=== PATIENT | female | born 1980 | race Asian ===

== ENCOUNTER 2019-05-12 18:49 | Inpatient (IN) | payer SELFPAY ==
[~2019-05-12] VITALS: Ht 154.9 cm; Wt 65.8 kg
[2019-05-12 18:59] VITALS: BP 98/54
--- NOTE | 2019-05-12 19:09 | Emergency Room Report ---
History of Present Illness General Chief Complaint: Vaginal Source: Patient Present Illness HPI Disclaimer: Please note that this report is being documented using DRAGON technology. This can lead to erroneous entry secondary to incorrect interpretation by the dictating instrument. HPI: 38-year-old female with a history of uterine fibroids presents for evaluation of vaginal bleeding. She was in her usual state of health until she was awakened at 3 AM this morning complaining of profuse abdominal cramping and bleeding. She was taken by ambulance to [facility] where she was diagnosed with bleeding uterine fibroids by ultrasound. Her paperwork is available from the facility. She was discharged with a hemoglobin of 8.9 and started on Ortho-Novum estradiol. Ultrasound report does not show any free fluid. Notes bilateral cysts and heterogeneous uterus myometrium consistent with multiple fibroids. hCG was negative. PMH: Denies PSH: Denies Allergies: Denies Social Hx: Denies Allergies: Coded Allergies: No Known Allergies (Unverified , 05/12/19) Patient History Now: No Nursing Documentation-PMH Past Medical History: No Stated History Review of Systems All Other Systems: negative except mentioned in HPI Physical Exam Vital Signs Date Time Temp Pulse Resp B/P (MAP) Pulse Ox O2 Delivery O2 Flow Rate FiO2 05/12/19 18:52 98.4 75 20 105/54 (71) 98 Room Air General: Awake and alert, appears uncomfortable, tremulous, pale HEENT: NC/AT. EOMI. Cardiovascular: RRR. S1 and S2 normal. No murmur appreciated Resp: Normal work of breathing. No cough, wheezing or crackles appreciated Abdomen: Abdomen is soft, nondistended. Danie in the suprapubic region. Skin: Intact. No abrasions, laceration or rash over the exposed skin MSK: Normal tone and bulk. Moving all extremities. No obvious deformity. Neuro: Awake and alert. Mentating appropriately. Medical Decision Making Diagnostic Impression: Primary Impression: Vaginal bleeding Additional Impression: Anemia ER Course 38-year-old female visiting from [facility] presents for evaluation of vaginal bleeding. She was diagnosed with uterine fibroids earlier this morning and prescribed estradiol which she has not yet started. She had a significant worsening leading episode while trying to black pickler her medications. She arrives with borderline but stable blood pressures and is not tachycardic. She appears uncomfortable. Will obtain labs including type and screen in preparation for possible transfusion. She is bleeding at this but no gross hemorrhage is apparent. hCG according to hospital paperwork was negative earlier today. Laboratory Tests Test 05/12/19 18:58 05/12/19 20:50 White Blood Count 7.9 K/UL (4.8-10.8) Red Blood Count 3.07 M/UL (4.20-5.40) L Hemoglobin 8.9 G/DL (12.0-16.0) L Hematocrit 25.7 % (37.0-47.0) L Mean Corpuscular Volume 84 FL (80-99) Mean Corpuscular Hemoglobin 28.9 PG (27.0-31.0) Mean Corpuscular Hemoglobin Concent 34.5 G/DL (32.0-36.0) Red Cell Distribution Width 11.2 % (11.6-14.8) L Platelet Count 298 K/UL (150-450) Mean Platelet Volume 5.3 FL (6.5-10.1) L Neutrophils (%) (Auto) 55.7 % (45.0-75.0) Lymphocytes (%) (Auto) 37.2 % (20.0-45.0) Monocytes (%) (Auto) 6.1 % (1.0-10.0) Eosinophils (%) (Auto) 0.3 % (0.0-3.0) Basophils (%) (Auto) 0.7 % (0.0-2.0) Prothrombin Time 11.1 SEC (9.30-11.50) Prothrombin Time INR 1.0 (0.9-1.1) PTT 26 SEC (23-33) Sodium Level 138 MMOL/L (136-145) Potassium Level 3.5 MMOL/L (3.5-5.1) Chloride Level 105 MMOL/L (98-107) Carbon Dioxide Level 18 MMOL/L (21-32) L Anion Gap 15 mmol/L (5-15) Blood Urea Nitrogen 13 mg/dL (7-18) Creatinine 0.9 MG/DL (0.55-1.30) Estimate Glomerular Filtration Rate > 60 mL/min (>60) Glucose Level 135 MG/DL (74-106) H Calcium Level 8.7 MG/DL (8.5-10.1) Total Bilirubin 0.8 MG/DL (0.2-1.0) Aspartate Amino Transferase (AST) 18 U/L (15-37) Alanine Aminotransferase (ALT) 15 U/L (12-78) Alkaline Phosphatase 30 U/L (46-116) L Total Protein 6.5 G/DL (6.4-8.2) Albumin 3.4 G/DL (3.4-5.0) Globulin 3.1 g/dL Albumin/Globulin Ratio 1.1 (1.0-2.7) Urine Color Red Urine Appearance Turbid Urine pH 8 (4.5-8.0) Urine Specific [place] 1.015 (1.005-1.035) Urine Protein 4+ (NEGATIVE) H Urine Glucose (UA) 1+ (NEGATIVE) H Urine Ketones 1+ (NEGATIVE) H Urine Blood 5+ (NEGATIVE) H Urine Nitrite Negative (NEGATIVE) Urine Bilirubin Negative (NEGATIVE) Urine Urobilinogen Normal MG/DL (0.0-1.0) Urine Leukocyte Esterase Negative (NEGATIVE) Urine RBC Tntc /HPF (0 - 2) H Urine WBC 0-2 /HPF (0 - 2) Urine Squamous Epithelial Cells None /LPF (NONE/OCC) Urine Bacteria None /HPF (NONE) Urine HCG, Qualitative Negative (NEGATIVE) Reevaluation Time: 21:41 Last Vital Signs Date Time Temp Pulse Resp B/P (MAP) Pulse Ox O2 Delivery O2 Flow Rate FiO2 05/12/19 18:52 98.4 75 20 105/54 (71) 98 Room Air Reevaluation Impression Patient's hemoglobin is stable at 8.9 however she continues to bleed. Will be started on estrogen. Chemistries within normal limits as are coagulation studies. No evidence of urinary tract infection. Blood pressures are stable. She will be admitted for further care and management of dysfunctional uterine bleeding. Disposition: ADMITTED INPATIENT Condition: Serious Ulysses Albert MD May 12, 2019 19:09
[2019-05-12 19:12] VITALS: BP 98/54
[2019-05-12 19:14] LABS: BASOPHILS % (AUTO) 0.7 % (0.0-2.0); EOSINOPHILS % (AUTO) 0.3 % (0.0-3.0); HEMATOCRIT 25.7 % (37.0-47.0); HEMOGLOBIN 8.9 G/DL (12.0-16.0); LYMPHOCYTES % (AUTO) 37.2 % (20.0-45.0); MEAN CORPUSCULAR VOLUME 84 FL (80-99); MONOCYTES % (AUTO) 6.1 % (1.0-10.0); NEUTROPHILS % (AUTO) 55.7 % (45.0-75.0); PLATELET COUNT 298 K/UL (150-450); RED BLOOD COUNT 3.07 M/UL (4.20-5.40); RED CELL DISTRIBUTION WIDTH 11.2 % (11.6-14.8); WHITE BLOOD COUNT 7.9 K/UL (4.8-10.8)
[2019-05-12 19:27] LABS: ANION GAP 15 mmol/L (5-15); BLOOD UREA NITROGEN 13 mg/dL (7-18); CALCIUM 8.7 MG/DL (8.5-10.1); CARBON DIOXIDE 18 MMOL/L (21-32); CHLORIDE 105 MMOL/L (98-107); CREATININE 0.9 MG/DL (0.55-1.30); POTASSIUM 3.5 MMOL/L (3.5-5.1); SODIUM 138 MMOL/L (136-145)
[2019-05-12 19:32] LABS: ALANINE AMINOTRANSFERASE 15 U/L (12-78); ALBUMIN 3.4 G/DL (3.4-5.0); ALBUMIN/GLOBULIN RATIO 1.1 (1.0-2.7); ALKALINE PHOSPHATASE 30 U/L (46-116); ASPARTATE AMINO TRANSFERASE 18 U/L (15-37); BILIRUBIN,TOTAL 0.8 MG/DL (0.2-1.0)
[2019-05-12] MEDS ORDERED: Premarin Inj IV ONE (20:45)
[2019-05-12] MEDS ORDERED: LORazepam Inj 2mg/ml 1ml IV ONE (21:30)
[2019-05-12 21:31] LABS: APPEARANCE,URINE TURBID; BILIRUBIN, URINE NEGATIVE (NEGATIVE); GLUCOSE, URINE (UA) 1+ (NEGATIVE); KETONES,URINE 1+ (NEGATIVE); LEUKOCYTE ESTERASE ,URINE NEGATIVE (NEGATIVE); NITRITE,URINE NEGATIVE (NEGATIVE); PH,URINE 8 (4.5-8.0); PROTEIN,URINE 4+ (NEGATIVE); UROBILINOGEN,URINE NORMAL MG/DL (0.0-1.0)
[2019-05-12 21:36] LABS: COLOR,URINE RED
[2019-05-13] MEDS ORDERED: Acetaminophen 500mg (ES) tab ORAL PRN (01:00)
[2019-05-13 04:00] VITALS: BP 107/63
[2019-05-13 07:45] VITALS: BP 96/45
[2019-05-13 08:42] LABS: HEMATOCRIT 20.5 % (37.0-47.0); MEAN CORPUSCULAR VOLUME 87 FL (80-99); PLATELET COUNT 253 K/UL (150-450); RED BLOOD COUNT 2.36 M/UL (4.20-5.40); RED CELL DISTRIBUTION WIDTH 12.9 % (11.6-14.8); WHITE BLOOD COUNT 9.2 K/UL (4.8-10.8)
[2019-05-13 08:45] LABS: HEMOGLOBIN 6.7 G/DL (12.0-16.0)
--- NOTE | 2019-05-13 09:23 | Consultation ---
Consult Note Consult Note GYNECOLOGY CONSULTATION REPORT CC: Heavy vaginal bleeding HPI: Patient is Albanian speaking only and the information obtained was done via injection operator. The patient was admitted with anemia and heavy vaginal bleeding after being discharged from another hospital with a prescription for OCPs which she did not fill due to weakness and persistent bleeding that was alarming. The patient reports that she began having heavy vaginal bleeding over 24h ago that consisted of large gushes of blood and clot. She reports having a normal period on 05/06, which was normal flow (typically light). Her period ended and a couple of days later began having her current episode of bleeding. She denies pain. She has known fibroids which she is following up with her LINING SETTER in [place]. She is here on vacation and was supposed to leave for [place] yesterday however due to her bleeding was unable to leave when scheduled. She is currently still bleeding and still denies pain. She endorses weakness, fatigue, and lightheadedness. No syncope or shortness of breath. PMH: Denies PSH: Denies OBHx: - TAB x 2 GYNHx: Last Pap (unable to determine) but patient reports having regular exams and no history of abnl Pap. LMP 05/06/19. Denies hx of STI or cysts. Known hx of fibroids Meds: None Allergies: NKDA SocHx: Lives with parents in [place]. Here as tourist. FamHx: Denies hx of VTE, CVA, or malignancy Vitals: BP 107/63, P 82, RR 16, O2 99% RA, Tlasst 98.2F Exam: Gen: NAD but appears weak and fatigued with general pallor appreciated HEENT: +Conjunctival pallor, OP clear, MM dry Neck: No thyromegaly appreciated CV: Tachycardic to the low 100s Pulm: No increased work of breathing Abd: Soft, NTND, no rebound or guarding Pelvic: NEFG. Partial left vaginal septum appreciated, non-friable. Large volume of clot in vaginal vault. No active bleeding noted at external os. Uterus enlarged, bulky, with palpable fibroids Ext: No calf TTP Labs: Labs Test 05/12/19 18:58 05/12/19 20:50 05/13/19 05:45 White Blood Count 7.9 K/UL (4.8-10.8) 9.2 K/UL (4.8-10.8) Red Blood Count 3.07 M/UL (4.20-5.40) 2.36 M/UL (4.20-5.40) Hemoglobin 8.9 G/DL (12.0-16.0) 6.7 G/DL (12.0-16.0) Hematocrit 25.7 % (37.0-47.0) 20.5 % (37.0-47.0) Mean Corpuscular Volume 84 FL (80-99) 87 FL (80-99) Mean Corpuscular Hemoglobin 28.9 PG (27.0-31.0) 28.5 PG (27.0-31.0) Mean Corpuscular Hemoglobin Concent 34.5 G/DL (32.0-36.0) 32.7 G/DL (32.0-36.0) Red Cell Distribution Width 11.2 % (11.6-14.8) 12.9 % (11.6-14.8) Platelet Count 298 K/UL (150-450) 253 K/UL (150-450) Mean Platelet Volume 5.3 FL (6.5-10.1) 5.6 FL (6.5-10.1) Neutrophils (%) (Auto) 55.7 % (45.0-75.0) % (45.0-75.0) Lymphocytes (%) (Auto) 37.2 % (20.0-45.0) % (20.0-45.0) Monocytes (%) (Auto) 6.1 % (1.0-10.0) % (1.0-10.0) Eosinophils (%) (Auto) 0.3 % (0.0-3.0) % (0.0-3.0) Basophils (%) (Auto) 0.7 % (0.0-2.0) % (0.0-2.0) Prothrombin Time 11.1 SEC (9.30-11.50) Prothromb Time International Ratio 1.0 (0.9-1.1) Activated Partial Thromboplast Time 26 SEC (23-33) Sodium Level 138 MMOL/L (136-145) Potassium Level 3.5 MMOL/L (3.5-5.1) Chloride Level 105 MMOL/L (98-107) Carbon Dioxide Level 18 MMOL/L (21-32) Anion Gap 15 mmol/L (5-15) Blood Urea Nitrogen 13 mg/dL (7-18) Creatinine 0.9 MG/DL (0.55-1.30) Estimat Glomerular Filtration Rate > 60 mL/min (>60) Glucose Level 135 MG/DL (74-106) Calcium Level 8.7 MG/DL (8.5-10.1) Total Bilirubin 0.8 MG/DL (0.2-1.0) Aspartate Amino Transf (AST/SGOT) 18 U/L (15-37) Alanine Aminotransferase (ALT/SGPT) 15 U/L (12-78) Alkaline Phosphatase 30 U/L (46-116) Total Protein 6.5 G/DL (6.4-8.2) Albumin 3.4 G/DL (3.4-5.0) Globulin 3.1 g/dL Albumin/Globulin Ratio 1.1 (1.0-2.7) Urine Color Red Urine Appearance Turbid Urine pH 8 (4.5-8.0) Urine Specific [place] 1.015 (1.005-1.035) Urine Protein 4+ (NEGATIVE) Urine Glucose (UA) 1+ (NEGATIVE) Urine Ketones 1+ (NEGATIVE) Urine Blood 5+ (NEGATIVE) Urine Nitrite Negative (NEGATIVE) Urine Bilirubin Negative (NEGATIVE) Urine Urobilinogen Normal MG/DL (0.0-1.0) Urine Leukocyte Esterase Negative (NEGATIVE) Urine RBC Tntc /HPF (0 - 2) Urine WBC 0-2 /HPF (0 - 2) Urine Squamous Epithelial Cells None /LPF (NONE/OCC) Urine Bacteria None /HPF (NONE) Urine HCG, Qualitative Negative (NEGATIVE) Differential Total Cells Counted 100 Neutrophils % (Manual) 63 % (45-75) Lymphocytes % (Manual) 33 % (20-45) Monocytes % (Manual) 2 % (1-10) Eosinophils % (Manual) 1 % (0-3) Basophils % (Manual) 1 % (0-2) Band Neutrophils 0 % (0-8) Platelet Estimate Adequate Platelet Morphology Normal Imaging: Studies from OSH reviewed, uterus normal size, however heterogeneous with multiple fibroids and ET 13mm Ovaries wnl Assessment/Plan Assessment/Plan: Patient is a 38yo with AUB-L, presenting with severe anemia secondary to heavy vaginal bleeding. - Vitals stable, however last H/H as above, recommend 3u pRBC transfusion now - Will order TXA to be administered per protocol - If bleeding stops, will likely d/c on oral TXA regimen, however if bleeding continues patient may require urgent D&C - Will continue to monitor patient closely - Recommend strict pad counts to monitor extent of bleeding Signed: MD Carlos Alexander Carla M.D. May 13, 2019 09:22
[2019-05-13] MEDS ORDERED: Tranexamic Acid 100 ML IVPB ONE (10:30)
--- NOTE | 2019-05-13 11:37 | Consultation ---
History of Present Illness General Chief Complaint: Vaginal Present Illness Allergies: Coded Allergies: No Known Allergies (Unverified , 05/12/19) Patient History Healthcare decision maker Resuscitation status Advanced Directive on File Physical Exam Last 24 Hour Vital Signs Date Time Temp Pulse Resp B/P (MAP) Pulse Ox O2 Delivery O2 Flow Rate FiO2 05/13/19 08:15 Room Air 05/13/19 07:45 97.6 101 16 96/45 (62) 99 05/13/19 04:00 98.2 82 17 107/63 (78) 100 05/13/19 00:59 Room Air 05/12/19 23:10 98.3 106 22 98/54 100 Room Air 112 05/12/19 19:12 98.3 112 22 98/54 100 Room Air 05/12/19 18:59 98.3 106 20 98/54 100 Room Air 05/12/19 18:52 98.4 75 20 105/54 (71) 98 Room Air Laboratory Tests Test 05/12/19 18:58 05/12/19 20:50 05/13/19 05:45 White Blood Count 7.9 K/UL (4.8-10.8) 9.2 K/UL (4.8-10.8) Red Blood Count 3.07 M/UL (4.20-5.40) L 2.36 M/UL (4.20-5.40) L Hemoglobin 8.9 G/DL (12.0-16.0) L 6.7 G/DL (12.0-16.0) *L Hematocrit 25.7 % (37.0-47.0) L 20.5 % (37.0-47.0) L Mean Corpuscular Volume 84 FL (80-99) 87 FL (80-99) Mean Corpuscular Hemoglobin 28.9 PG (27.0-31.0) 28.5 PG (27.0-31.0) Mean Corpuscular Hemoglobin Concent 34.5 G/DL (32.0-36.0) 32.7 G/DL (32.0-36.0) Red Cell Distribution Width 11.2 % (11.6-14.8) L 12.9 % (11.6-14.8) Platelet Count 298 K/UL (150-450) 253 K/UL (150-450) Mean Platelet Volume 5.3 FL (6.5-10.1) L 5.6 FL (6.5-10.1) L Neutrophils (%) (Auto) 55.7 % (45.0-75.0) % (45.0-75.0) Lymphocytes (%) (Auto) 37.2 % (20.0-45.0) % (20.0-45.0) Monocytes (%) (Auto) 6.1 % (1.0-10.0) % (1.0-10.0) Eosinophils (%) (Auto) 0.3 % (0.0-3.0) % (0.0-3.0) Basophils (%) (Auto) 0.7 % (0.0-2.0) % (0.0-2.0) Prothrombin Time 11.1 SEC (9.30-11.50) Prothromb Time International Ratio 1.0 (0.9-1.1) Activated Partial Thromboplast Time 26 SEC (23-33) Sodium Level 138 MMOL/L (136-145) Potassium Level 3.5 MMOL/L (3.5-5.1) Chloride Level 105 MMOL/L (98-107) Carbon Dioxide Level 18 MMOL/L (21-32) L Anion Gap 15 mmol/L (5-15) Blood Urea Nitrogen 13 mg/dL (7-18) Creatinine 0.9 MG/DL (0.55-1.30) Estimat Glomerular Filtration Rate > 60 mL/min (>60) Glucose Level 135 MG/DL (74-106) H Calcium Level 8.7 MG/DL (8.5-10.1) Total Bilirubin 0.8 MG/DL (0.2-1.0) Aspartate Amino Transf (AST/SGOT) 18 U/L (15-37) Alanine Aminotransferase (ALT/SGPT) 15 U/L (12-78) Alkaline Phosphatase 30 U/L (46-116) L Total Protein 6.5 G/DL (6.4-8.2) Albumin 3.4 G/DL (3.4-5.0) Globulin 3.1 g/dL Albumin/Globulin Ratio 1.1 (1.0-2.7) Urine Color Red Urine Appearance Turbid Urine pH 8 (4.5-8.0) Urine Specific [place] 1.015 (1.005-1.035) Urine Protein 4+ (NEGATIVE) H Urine Glucose (UA) 1+ (NEGATIVE) H Urine Ketones 1+ (NEGATIVE) H Urine Blood 5+ (NEGATIVE) H Urine Nitrite Negative (NEGATIVE) Urine Bilirubin Negative (NEGATIVE) Urine Urobilinogen Normal MG/DL (0.0-1.0) Urine Leukocyte Esterase Negative (NEGATIVE) Urine RBC Tntc /HPF (0 - 2) H Urine WBC 0-2 /HPF (0 - 2) Urine Squamous Epithelial Cells None /LPF (NONE/OCC) Urine Bacteria None /HPF (NONE) Urine HCG, Qualitative Negative (NEGATIVE) Differential Total Cells Counted 100 Neutrophils % (Manual) 63 % (45-75) Lymphocytes % (Manual) 33 % (20-45) Monocytes % (Manual) 2 % (1-10) Eosinophils % (Manual) 1 % (0-3) Basophils % (Manual) 1 % (0-2) Band Neutrophils 0 % (0-8) Platelet Estimate Adequate Platelet Morphology Normal Height (Feet): 5 Height (Inches): 1.00 Weight (Pounds): 145 Medications Current Medications Medications (Trade) Dose Ordered Sig/Mercedes Route PRN Reason Start Time Stop Time Status Last Admin Dose Admin Acetaminophen (Tylenol) 500 mg Q6H PRN ORAL Mild Pain/Temp > 100.5 05/13/19 01:00 06/12/19 00:59 Assessment/Plan Assessment/Plan: Hematology Consultation Note REQ MD: Deb German RFC: Heavy bleeding, WILLIAMS DOS: 05/13/19 CC: Heavy vaginal bleeding HPI: 38y old female, is Swedish speaking only and the information obtained from chart, did see Dr. Gonzalez this am -- the patient was admitted with anemia and heavy vaginal bleeding after being discharged from another hospital with a prescription for OCPs which she did not fill due to weakness and persistent bleeding that was alarming. The patient reports that she began having heavy vaginal bleeding over 24h ago that consisted of large gushes of blood and clot. She reports having a normal period on 05/06, which was normal flow (typically light). Her period ended and a couple of days later began having her current episode of bleeding. She denies pain. She has known fibroids which she is following up with her PUMP ERECTOR HELPER in [place]. She is here on vacation and was supposed to leave for [place] yesterday however due to her bleeding was unable to leave when scheduled. She is currently still bleeding and still denies pain. She endorses weakness, fatigue, and lightheadedness. No syncope or shortness of breath. Hgb this am is low in the 7s, have signed blood consent and heme was consulted. PMH: Denies PSH: Denies GYNHx: Last Pap (unable to determine) but patient reports having regular exams and no history of abnl Pap. LMP 05/06/19. Denies hx of STI or cysts. Known hx of fibroids Meds: None Allergies: NKDA SocHx: Lives with parents in [place]. Here as tourist. FamHx: Denies hx of VTE, CVA, or malignancy Physical Exam: Vitals: reviewed General Appearance: NAD HEENT: normocephalic, atraumatic Neck: non-tender, normal alignment Respiratory/Chest: normal breath sounds bilaterally Cardiovascular/Chest: normal peripheral pulses, normal rate Abdomen: normal bowel sounds, soft, nontender Extremities: normal range of motion Labs: noted Imaging: Studies from OSH reviewed, uterus normal size, however heterogeneous with multiple fibroids and ET 13mm Assessment/Plan: # Anemia of iron deficiency, unspecified rule out gi bleed --> in this case is due to vaginal bleeding that is heavy bleeding with extensive fibroids --> anemia panel has been ordered --> will/have begun on iv iron and continue x 5 doses --> review if occult blood is + (review this to make sure +). Can consider gi eval --> hgb goal is >7, transfuse as needed --> trend CBC daily to make sure no major acute drop --> no evidence of hemolysis noted --> tranexamic acid has been given by obgyn, agree --> If bleeding stops, will likely d/c on oral TXA regimen, however if bleeding continues patient may require urgent D&C --> prbc given 05/13 # Fibroids which contributing to patients anemia --> again seen by obgyn, may need surgery electively # Tachycardia due to volume down state --> ivf given, likely due to anemia --> s/p blood trans # Hypotension due to above --> prbc given The timing of this note does not necessarily reflect the time of the patient was seen. Greatly appreciate consultation. Michael Richardson MD May 13, 2019 11:37
[2019-05-13 11:44] LABS: % IRON SATURATION 27 % (15-50); IRON 62 ug/dL (50-175); TOTAL IRON BINDING CAPACITY 233 ug/dL (250-450)
[2019-05-13 12:00] VITALS: BP 96/58
[2019-05-13 12:04] LABS: FERRITIN 14 NG/ML (8-388)
[2019-05-13] MEDS ORDERED: Iron Sucrose 200 MG in NS 110 ML IV ONE (13:00)
[2019-05-13 16:00] VITALS: BP 105/56
--- NOTE | 2019-05-13 16:38 | General Progress Note ---
Progress Note Progress Note GYNECOLOGY PROGRESS NOTE Patient's bleeding has stopped s/p TXA administration. She has received 1u pRBCs and is feeling subjectively a little better although still weak. Vitals reviewed, no longer tachycardic and BPs stable Exam: pallor improved, bleeding stopped 38yo with AUB-L admitted with severe anemia 2/2 heavy vaginal bleeding, now with bleeding resolved s/p TXA administration - Recommend d/c home after completion of transfusion and 1 additional dose of IV TXA prior to discharge - Will provide Rx for Tranexamic Acid 1100mg PO to be taken for 4 days, and follow up with her MD in [place] as soon as possible. Precautions reviewed. - Encouraged ambulation on plane with good PO hydration to prevent VTE. Patient comfortable with this plan. Signed: MD Carlos Alexander Carla M.D. May 13, 2019 16:38
[2019-05-13] MEDS ORDERED: TRANEXAMIC ACI650 MG PO (18:08)
[2019-05-13] MEDS ORDERED: NS 275ml ONE (18:12)
[2019-05-13] MEDS ORDERED: Tubing IV Secondary IV ONE (18:12)
[2019-05-13] MEDS ORDERED: Tubing Blood Filter IV ONE (18:12)
[2019-05-13 20:00] VITALS: BP 112/65
[2019-05-13] MEDS ORDERED: Tranexamic Acid 1,000 MG in NS 55 ML IVPB SCH (21:00)
--- NOTE | 2019-05-14 00:45 | History and Physical Report ---
DATE OF ADMISSION: 05/12/2019 HISTORY OF PRESENT ILLNESS: The patient is visiting from [place], came in because of bleeding from the fibroids. The patient was was found to have fibroids. She was admitted for transfusion. The patient noted to have dysfunctional uterine bleeding and anemia. The patient speaks Burkinan, admitted for transfusion. PAST MEDICAL HISTORY: Significant for fibroids. from [facility], is visiting here and this happened and anemia. ALLERGIES: No known allergies. PAST SURGICAL HISTORY: None. SOCIAL HISTORY: Denies alcohol or illicit drugs. REVIEW OF SYSTEMS: HEENT: Denies headaches. RESPIRATORY: Denies shortness of breath. Denies cough. CARDIOVASCULAR: Denies chest pain. GASTROINTESTINAL: Denies nausea, vomiting, or diarrhea. Does have bleeding from the vagina. EXTREMITIES: Denies pain in lower extremities. CENTRAL NERVOUS SYSTEM: Denies change in vision or speech pattern. PHYSICAL EXAMINATION: VITAL SIGNS: Temperature is 98.2, pulse is 82, blood pressure 107/63. HEENT: PERRLA. NECK: Supple. CHEST: Clear to auscultation. CARDIOVASCULAR: Regular rate and rhythm. No murmurs or extra sounds. GASTROINTESTINAL: Soft, nontender, and nondistended. No organomegaly. Moves all four extremities. Sensory intact to light touch. Reflexes equal on both sides. ASSESSMENT AND PLAN: 1. Anemia. 2. Uterine bleeding. I have asked Dr. Gonzalez, hebrew cantor, Dr. Debra Mcclain to see the patient for the above-mentioned diagnoses and treatment. Deb Baird M.D. DR: Liset JOB#: [id number] CC:
--- NOTE | 2019-05-14 12:35 | Discharge Summary ---
Discharge Summary Discharge Summary _ DATE OF ADMISSION: 05/12/2019 DATE OF DISCHARGE: 05/13/2019 DISCHARGED BY: Dr Baird REASON FOR ADMISSION: 38 years old female with no significant past medical history , except uterine fibroids, presented with heavy vaginal bleeding after being discharged from another hospital with a prescription for OCPs , which she did not fill due to weakness and persistent bleeding . The patient reported that she began having heavy vaginal bleeding over 24h ago, which t consisted of large gushes of blood and clots. She reported having a normal period on 05/06, which was normal flow (typically light). Her period ended , but a couple of days later she began having her current episode of bleeding. She denied pain. She has known uterine fibroids, for which she is following up with her MUSIC ADAPTER in [place]. She was in [place] on vacation and was supposed to leave for [facility] yesterday; however due to her bleeding she was unable to leave when scheduled. She endorsed weakness, fatigue, and lightheadedness. No syncope or shortness of breath. No abdominal pain. Laboratory work-up revealed no leukocytosis ,hemoglobin 8.9 ,hematocrit 25.7. Platelet count 298. Stable electrolytes and renal parameters , stable LFT . Urinalysis revealed hematuria, but no evidence of urinary tract infection. hCG negative. Patient was admitted for further management.. CONSULTANTS: HOME AND SCHOOL VISITOR Dr. Gonzalez nitroglycerin nitrator operator batch/oncologist Dr. Richardson [facility] COURSE: Patient admitted to medical surgical floor. MUSIC ADAPTER seen and evaluated patient. Clinical exam revealed large volume of clot in vaginal vault. No active bleeding on external os. Uterus enlarged, bulky, with palpable fibroids. Hemoglobin 6.7 , hematocrit 20.5. Patient was transfused with 2 units of packed red blood cells. [facility] Transplanter followed. Patient started on IV iron; and received 2 doses. Patient started on tranexamic acid intravenously. Bleeding stopped. Patient completed blood transfusion. Tachycardia resolved. Blood pressure improved. Patient was stable for discharge on oral Tranexamic acid 650 mg tid x 4 days. Follow-up with MUSIC ADAPTER in [facility]. FINAL DIAGNOSES: Vaginal bleeding probably due to uterine fibroids Anemia of iron deficiency Anemia secondary to heavy vaginal bleeding, requiring blood transfusion Tachycardia -resolved Hypotension- improved DISCHARGE MEDICATIONS: See Medication Reconciliation list. DISCHARGE INSTRUCTIONS: Patient was discharged home. Follow-up with MUSIC ADAPTER specialist in [place]. I have been assigned to dictate discharge summary for this account. I was not involved in the patient's management. Alison Jack NP May 14, 2019 12:35
[2019-05-14] MEDS ORDERED: Iron Sucrose 200 MG in NS 110 ML IV SCH (21:00)
== END 2019-05-13 23:00 | disposition home or self-care (01) | DRG 812 ==
LOC: EDBD 18:49 → EMR 20:19 → 4E 21:10 → EDBEDREQ 22:27
PROC: 30233N1 Transfusion of Nonautologous Red Blood Cells into Peripheral Vein, Percutaneous Approach (ICD-10-PCS; principal; 2019-05-12)
DX: D50.0 Iron deficiency anemia secondary to blood loss (chronic) (principal); D25.9 Leiomyoma of uterus, unspecified; N93.8 Other specified abnormal uterine and vaginal bleeding; R00.0 Tachycardia, unspecified; I95.9 Hypotension, unspecified
CPT/HCPCS: 36415; 80053; 81003; 81025; 82728; 83540; 83550; 85007; 85025; 85610; 85730; 86850; 86900; 86901; 86920; 96361; 96374; 96375; 99285; J2405